=== PATIENT | female | born 1995 | race Caucasian/White ===

== ENCOUNTER 2018-08-14 20:05 | Emergency (ER) | payer SELFPAY ==
--- NOTE | 2018-08-14 21:48 | ER Document Report ---
ED Medical Screen (RME) - General Chief Complaint: Skin Problem Stated Complaint: POSSIBLE ABSCESS RIGHT THIGH Time Seen by Provider: 08/14/18 21:46 Mode of Arrival: Ambulatory Information source: Patient Notes: 22-year-old female presented to ED for complaint of an abscess for 4 days to her right upper thigh. She states it just appeared one day she did not cut herself she did not have a bug bite she has not scratched herself she has not pinched anything. She is states she has had abscesses in the past and has had 4 of them drained. She states she has been started on clindamycin at times and has been given sulfa. She states she is allergic to sulfa and cannot take sulfur. She states she took Tylenol thousand milligrams about 19:30. She states her son has a history of MRSA but she has never been tested for MRSA. Patient states she does not need any ibuprofen at this time. Patient is alert oriented respirations regular and unlabored speaking in full sentences walks with a even steady gait. I have greeted and performed a rapid initial assessment of this patient. A comprehensive ED assessment and evaluation of the patient, analysis of test results and completion of medical decision making process will be conducted by an additional ED providers. Physical Exam - Vital signs Vitals: Temp Pulse Resp BP Pulse Ox 98.0 F 61 14 127/75 H 99 08/14/18 20:38 08/14/18 20:38 08/14/18 20:38 08/14/18 20:38 08/14/18 20:38 Course - Vital Signs Vital signs: Temp Pulse Resp BP Pulse Ox 98.0 F 61 14 127/75 H 99 08/14/18 20:38 08/14/18 20:38 08/14/18 20:38 08/14/18 20:38 08/14/18 20:38
[2018-08-15] MEDS ORDERED: SULFAMETHOXAZOLE/TRIMETHOPRIM 800-160 MG TABLET PO ONE (00:12)
[2018-08-15] MEDS ORDERED: IBUPROFEN 600 MG TABLET PO ONE (00:12)
[2018-08-15] MEDS ORDERED: CEPHALEXIN 500 MG CAPSULE PO ONE (00:12)
[2018-08-15] MEDS ORDERED: ACETAMINOPHEN 325 MG TABLET PO ONE (00:12)
--- NOTE | 2018-08-15 00:13 | ER Document Report ---
ED General - General Chief Complaint: Skin Problem Stated Complaint: POSSIBLE ABSCESS RIGHT THIGH Time Seen by Provider: 08/14/18 21:46 Mode of Arrival: Ambulatory Notes: Patient is a 22-year-old female without chronic medical problems presents with 3 days of increasing pain and swelling to her right mid thigh with a now spreading area of redness around the area. Patient states that the area started as a small boil and has gotten much bigger and more painful over that period of time. Describes the pain as a dull, throbbing, constant pain that is moderately severe in intensity. Touching the area worsens the pain. Nothing improves the pain. Denies associated fever or constitutional symptoms. Has a history of abscesses in the past similar to today's presentation. Has not seen her general doctor regarding today's concerns. Past Medical History - General Information source: Patient - Social History Smoking Status: Never Smoker Chew tobacco use (# tins/day): No Frequency of alcohol use: None Drug Abuse: None Lives with: Spouse/Significant other Family History: Reviewed & Not Pertinent Patient has suicidal ideation: No Patient has homicidal ideation: No Renal/ Medical History: Denies: Hx Peritoneal Dialysis Review of Systems - Review of Systems Notes: Constitutional: Negative for fever. HENT: Negative for sore throat. Eyes: Negative for visual changes. Cardiovascular: Negative for chest pain. Respiratory: Negative for shortness of breath. Gastrointestinal: Negative for abdominal pain, vomiting or diarrhea. Genitourinary: Negative for dysuria. Musculoskeletal: Negative for back pain. Skin: Positive for abscess with associated cellulitis to the right leg Neurological: Negative for headaches, weakness or numbness. 10 point ROS negative except as marked above and in HPI. Physical Exam - Vital signs Vitals: Temp Pulse Resp BP Pulse Ox 98.0 F 61 14 127/75 H 99 08/14/18 20:38 08/14/18 20:38 08/14/18 20:38 08/14/18 20:38 08/14/18 20:38 Interpretation: Normal Notes: PHYSICAL EXAMINATION: GENERAL: Well-appearing, well-nourished and in no acute distress. HEAD: Atraumatic, normocephalic. EYES: Pupils equal round and reactive to light, extraocular movements intact, sclera anicteric, conjunctiva are normal. ENT: nares patent, oropharynx clear without exudates. Moist mucous membranes. NECK: Normal range of motion, supple without lymphadenopathy LUNGS: Breath sounds clear to auscultation bilaterally and equal. No wheezes rales or rhonchi. HEART: Regular rate and rhythm without murmurs ABDOMEN: Soft, nontender, normoactive bowel sounds. No guarding, no rebound. No masses appreciated. EXTREMITIES: Normal range of motion, no pitting or edema. No cyanosis. NEUROLOGICAL: No focal neurological deficits. Moves all extremities spontaneously and on command. PSYCH: Normal mood, normal affect. SKIN: Warm, Dry, normal turgor, there is a 1 x 1 cm abscess in the right mid thigh with a surrounding area of cellulitis. Course - Re-evaluation Re-evalutation: 08/15/18 00:13 Patient presents with a 1 x 1 cm abscess in the right central thigh with a surrounding area of 4 x 6 cm of cellulitis. Abscess is incised and drained without complication. Patient has been started on trimethoprim sulfamethoxazole as well as cephalexin for coverage of strep and MRSA. Patient is otherwise well in appearance, vitals within normal limits. No indication for labs or imaging. At this time will discharge with return precautions and follow-up recommendations. Verbal discharge instructions given a the bedside and opportunity for questions given. Medication warnings reviewed. Patient is in agreement with this plan and has verbalized understanding of return precautions and the need for primary care follow-up in the next 24-72 hours. - Vital Signs Vital signs: Temp Pulse Resp BP Pulse Ox 98.0 F 72 16 127/70 H 100 08/15/18 01:36 08/15/18 01:36 08/15/18 01:36 08/15/18 01:36 08/15/18 01:36 Procedures - Incision and Drainage Left Leg Type: Simple Anesthetic type: 1% Lidocaine mL's of anesthetic: 5 Blade size: 11 I&D procedure: Betadine prep applied, Sterile dressing applied Incision Method: Incision made by scalpel Amount/type of drainage: 3 cc of purulent drainage Discharge - Discharge Clinical Impression: Abscess of right leg, Cellulitis of right leg Condition: Good Disposition: HOME, SELF-CARE Additional Instructions: You were seen for an abscess that required drainage. Please clean this area with soap and water twice daily and apply a topical antibiotic. Dress the area after each cleaning. Please return if you develop fever, vomiting, the pain at the site worsens, you notice spreading redness from the area, or you have any other symptoms that are concerning to you. The rash is likely due to infection of your skin. You need to take the antibiotics as prescribed. Do not stop even if the rash goes away until you have completed all the antibiotics. The area of redness was traced out here in the emergency department with a marking pen. You need to return to emergency department if the redness spreads outside of this area by more than 2 cm in any direction. You should also return if you develop fevers with temperature greater than 101, persistent vomiting, worsening pain, or have any other symptoms that are concerning to you. Prescriptions: Cephalexin Monohydrate [Keflex 500 mg Capsule] 500 mg PO Q6H 7 Days capsule Sulfamethoxazole/Trimethoprim [Bactrim Ds Tablet] 2 tab PO BID #28 tablet
[2018-08-15 01:38] VITALS: BP 127/70
== END 2018-08-15 01:38 | disposition home or self-care (01) ==
LOC: ER 20:05
DX: L03.115 Cellulitis of right lower limb (principal); L02.415 Cutaneous abscess of right lower limb
CPT/HCPCS: 99283